=== PATIENT | male | born 1935 | race Caucasian/White ===

== ENCOUNTER 2018-12-26 15:27 | Inpatient (IN) | payer MEDICARE, OTHER ==
[2018-12-26] MEDS ORDERED: ISOVUE-370 76%-LOCM 1 ML ONE (15:45)
--- NOTE | 2018-12-26 16:30 | CT ---
Exam: CT ANGIOGRAM OF THE HEAD CT ANGIOGRAM OF THE NECK: HISTORY: Dizziness. Headache. Ataxia. Evaluate for carotid dissection. COMPARISON: None. FINDINGS: Postcontrast head CT: Age-appropriate atrophy. Cortical yates-white matter differentiation is preserve d. Adequate aeration of the sinuses and mastoid air cells. Aerodigestive tract is patent. No mucosal abnormality. Limited evaluation of the oral cavity due to d ental amalgam artifact. Midline fatty raphae of the tongue is preserved. Epiglottis has a normal caliber. Preepiglottic fat is preserved. Symmetric attenuation of the submandibular and parotid glands. Symmetric attenuation of the sternocle idomastoid muscles. No evidence of lymphadenopathy by size criteria. There is an upper normal left periparotid lymph node measuring 1.5 x 0.8 cm. Unremarkable thyroid gland. Upper mediastinum is unremarkable. Presumed chronic changes in the lung parenchyma. There is diffuse sclerosis of the osseous structures. There are varying degrees of central canal sten osis and neural foraminal narrowing. CT ANGIOGRAM: The visualized aortic arch is unremarkable. Right carotid: The right carotid artery origin, innominate artery, common carotid artery, carotid bif urcation and internal carotid artery have appropriate enhancement and luminal diameter. There is a small amount of calcified plaque in the right carotid bifurcation and proximal internal carotid arter y. No significant stenosis based upon NASCET criteria. Left carotid: Appropriate enhancement and luminal diameter of the origin of the left carotid artery. Minimal atherosclerosis left carotid bifurcation. The left common carotid, carotid bifurcation and internal carotid artery have appropriate enhancement and luminal diameter. Codominant cervical vertebral arteries are patent. Subclavian arteries are unremarkable CT angiogram of the head Distal cervical and intracranial internal carotid arteries have symmetric enhancement and luminal bill meter Anterior circulation: There is appropriate enhancement and luminal diameter of the A1 and M1 segments . The right A1 segment is slightly smaller than the contralateral side, likely due to congenital variant. The left M1 segment is truncated but has appropriate enhancement and luminal diameter, favor ing a congenital variant. Right M1 segment is unremarkable. Proximal A2 segments and proximal MCA branches are symmetric. Posterior circulation: Limited evaluation of PICA artery origins. Both vertebral arteries supply a no rmal appearing proximal basilar artery. The mid basilar artery demonstrates short segment severe stenosis with associated mild ectasia. Further interrogation with conventional angiography may be lu eficial. At the level of short segment severe stenosis, the basilar artery measures 0.1 x 0.3 cm. Bilateral P1 segments are unremarkable. IMPRESSION: 1. No evidence of carotid dissection. 2. 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 3. 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 Consider neurosurgical consultation fo r conventional angiography. Transcribed Date/Time: 12/26/2018 5:03 PM
--- NOTE | 2018-12-26 16:32 | CT ---
Exam: CT angiogram of the head CT angiogram the neck HISTORY: Dizziness. Headache. Ataxia. Evaluate for carotid dissection Comparison none FINDINGS: Postcontrast head CT: Age-appropriate atrophy. Cortical yates-white matter differentiation is preserve d. Adequate aeration of the sinuses and mastoid air cells Aerodigestive tract is patent. No mucosal abnormality. Limited evaluation the oral cavity due to dent al amalgam artifact. Midline fatty raphae of the tongue is preserved. Epiglottis has a normal caliber. Preepiglottic fat is preserved Symmetric attenuation of the subcutaneous mandibular and parotid glands. Symmetric attenuation of the sternocleidomastoid muscles No evidence of lymphadenopathy by size.. There is an upper normal left periparotid lymph node measuri ng 1.5 x 0.8 cm. Unremarkable thyroid gland Upper mediastinum is unremarkable. Presumed chronic changes in the lung parenchyma There is diffuse sclerosis osseous structures. There are varying degrees of central canal stenosis an d neural foraminal narrowing. CT ANGIOGRAM: The visualized aortic arch is unremarkable Right carotid: The right carotid artery origin, innominate artery, common carotid artery, carotid bif urcation and internal carotid artery of appropriate enhancement and luminal diameter. There is a small amount of calcified plaque in the right carotid bifurcation and proximal internal carotid arter y. No significant stenosis based upon mass effect criteria. Left carotid: Appropriate enhancement and luminal diameter the origin left carotid artery. Minimal at herosclerosis left carotid bifurcation. The left common carotid, carotid bifurcation and internal carotid artery have appropriate enhancement and luminal diameter Codominant cervical vertebral arteries are patent. Subclavian arteries are unremarkable CT angiogram of the head Distal cervical and intracranial internal carotid arteries have symmetric enhancement and luminal bill meter 2. Circulation: There is appropriate enhancement and luminal diameter the A1 and M1 segments. The rig ht A1 segment is slightly smaller than the contralateral side, likely due to congenital variant. The left M1 segment is truncated but has appropriate enhancement and luminal diameter, favoring a con genital variant. Right M1 segment is unremarkable. Proximal A2 segments and proximal MCA branches are symmetric Correlation: Limited evaluation of PICA artery origins. Both vertebral arteries supply a normal appea ring proximal basilar artery. The mid basilar artery demonstrates short segment severe stenosis with associated mild ectasia. Further interrogation with conventional angiography facial. At the leve l of short segment severe stenosis, the basilar artery measures 0.1 x 0.3 cm. Bilateral P1 segments are unremarkable IMPRESSION: 1. No evidence of carotid dissection 2. 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 Consider neurosurgical consultation fo r conventional angiography. Transcribed Date/Time: 12/26/2018 5:03 PM
[2018-12-26 17:48] LABS: Bilirubin Negative (Negative); Blood, Urine Trace (Negative); Clarity Clear (Clear); Glucose, Urine (Dipstick) Normal (Negative); Leukocyte Negative Leu/uL (Negative); Nitrite Negative (Negative); Protein, Urine (Dipstick) 30 mg/dL (Neg-Trace); RBC/HPF 21-50 HPF (0-3); Squamous Epithelial 0-3 HPF (0-3); Urobilinogen Normal mg/dL (Less than 2); WBC/HPF Greater than 50 HPF (0-3)
[2018-12-26 18:02] LABS: Bacteria/HPF 1+ HPF (None Seen)
[2018-12-26] MEDS ORDERED: Ondansetron PF 4 MG/2 ML Vial IVP PRN (19:15)
[2018-12-26] MEDS ORDERED: Ondansetron ODT 4 MG TAB SL PRN (19:15)
[2018-12-26] MEDS ORDERED: Aspirin 325 MG TAB PO SCH (20:15)
[2018-12-26 21:08] VITALS: BMI 21.9
[2018-12-26] MEDS ORDERED: hydrALAZINE 20 MG/ML VIAL SLOW IVP PRN (22:57)
--- NOTE | 2018-12-26 23:26 | PDOC.FPRHP ---
- History of Present Illness Chief Complaint: RIVERA History of Present Illness: Pt is an 83 yo M with history of bladder cancer and htn who presents with headache. The headache has been present for 2 weeks. His who head hurts and it feels like a pressure to the point he feels like his head is about to burst. Originally, he went to his pcp who thought it was R otitis media related, since he had sore throat and congestion, so he was given Amoxicllin and finished a couple of days ago. He tried to take some tramadol at night, which helped him sleep and he used ice packs for pain. After 1 wk, he went back to his pcp and was given oral steroids and ear drops. He was still having pain so two days later he was sent to an ENT who determined he had sinusitis and was given 2 nasal sprays. This morning he woke up at 4 am and felt dizzy and could not get his feet under him. He said he felt like the room was spinning and he was unable to focus on anything. He was eventually able to stand, but after he told his what happened they called their PCP who told them to come to the ER. ED Course: In the ED, they got a UA which showed >50 WBC, Libby: 1+, and no nitrites or leukocytes. Troponin was 0.017. CTA of Head and Neck was done and showed severe stenosis of the Basilar artery. - Allergies/Adverse Reactions Allergies Allergy/AdvReac Type Severity Reaction Status Date / Time No Known Allergies Allergy Verified 12/26/18 20:16 - Home Medications Medication Instructions Recorded Confirmed Type Azelastine [Azelastine 137 mcg 1 spray NASAL BID PRN 12/26/18 12/26/18 History (0.1%) Nasal [place]] Fluticasone Propionate [Flonase 2 drop NASAL BID PRN 12/26/18 12/26/18 History Nasal [place]] Lisinopril 20 mg PO BID 12/26/18 12/26/18 History Metoprolol Tartrate 50 mg PO BID 12/26/18 12/26/18 History Neomycin/Polymyxin B Sulf/HC 4 drop EA EAR QID 12/26/18 12/26/18 History [Neomycin/Polymyxin B Sulf/HC Otic Soln] - History PMHx: Bladder Cancer and HTN PSHx: Bladder and Prostate removed 10 years ago, cholecystectomy & appendectomy 4 years ago FHx: Non-contributory Social: Smoked 40 years ago for 15 years 1/2PPD, drinks socially. No recreational drugs. - Review of Systems General: reports: weight/appetite/sleep changes. denies: fever/chills Eyes: reports: vision changes (difficutly focusing on objects, goes in and out) ENT: reports: nasal congestion. denies: rhinorrhea Respiratory: denies: cough, shortness of breath Cardiovascular: denies: chest pain, edema Gastrointestinal: denies: nausea, vomiting, diarrhea Genitourinary: reports: incontinence Skin: denies: rashes, itching Musculoskeletal: denies: pain Neurological: reports: weakness, other (Ataxic gait) - Vital signs BP: 140/103 HR: 68 RR: 16 Tmax: 98 Pox: 98% on RA Wt: 77.5 - Physical Exam Constitutional: NAD HEENT: normocephalic and atraumatic, PERRLA, EOMI (with right gaze nystagmus), MMM, oropharynx clear Neck: supple Chest: no-tender to palpation Heart: RRR, normal S1/S2 Lungs: CTAB Abdomen: soft, non-tender, bowel sounds present Musculoskeletal: normal structure, normal tone Neurological: other (unable to perform heel to shinwith left leg on right side) Skin: no rash/lesions (small white nodules present over back.) Heme/Lymphatic: no unusual bruising or bleeding Psychiatric: normal mood and affect FMR H&P: Results - Labs Result Diagrams: 12/27/18 04:56 12/27/18 04:56 Lab results: Urine Ketones Negative mg/dL (Negative) 12/26/18 17:32 Urine Blood Trace (Negative) A 12/26/18 17:32 Urine Nitrite Negative (Negative) 12/26/18 17:32 Ur Leukocyte Esterase Negative Phoebe/uL (Negative) 12/26/18 17:32 Urine RBC 21-50 HPF (0-3) A 12/26/18 17:32 Urine WBC Greater than 50 HPF (0-3) A 12/26/18 17:32 Ur Squamous Epith Cells 0-3 HPF (0-3) 12/26/18 17:32 Urine Bacteria 1+ HPF (None Seen) 12/26/18 17:32 FMR H&P: A/P - Problem List (1) Stenosis of intracranial vessel Current Visit: Yes Status: Suspected Code(s): I66.9 - OCCLUSION AND STENOSIS OF UNSPECIFIED CEREBRAL ARTERY (2) HTN (hypertension) Current Visit: Yes Status: Acute Code(s): I10 - ESSENTIAL (PRIMARY) HYPERTENSION - Plan Pt is an 83 yo M with history of bladder cancer and htn who presents with headache. 1. Basilar Artery Stenosis CTA of Head & Neck: Showed Severe Basilar Artery Stenosis * Discussed with neurosurgery. They currently do not want to do surgery at this time. * MRI Brain with and without contrast * ASA 325, consider adding on Plavix or Eliquis later * Consider Neurology Consult in the AM 2. UTI Pt had surgery 10 years ago where bladder and prostate was removed and bladder remade out of small intestine * UA: WBC >50, Libby: 1+, No nitrites or leukocytes * Rocephin 3. HTN BP: 140/103 * Continue home: Lisinopril and metoprolol Diet: HHLSo Lines: Peripheral DVT Prophylaxis: Lovenox Code Status: Cardiac Only, DNI. GI Prophylaxis: Pepcid Dispo: Inpt, need MRI studies and neuro recommendations. FMR H&P: Upper Level - Pertinent history 83 yo M w/ PMH of bladder ca and HTN who presents for acute onset of blurred/ shaking visual rollins and ataxic gait. He reports headache tht has been present over last 2 weeks prior to onset of other sympotms. He denied and numbness, tingling or weakness elsewhere. He was seen in [place] [facility] and CT w & w/o contrast was done which showed possible occlusion of mid segment of basilar artery and neurosurgery consultation was recommended. Spoke with neurosurg pa communications associate who reviewed imaging and did not recommend any neurosurgical intervention. Incidentally, pt had elevated white count and left shift with positive UA. - Pertinent findings ROS: As above PE: Gen: NAD, resting in bed HEENT: NCAT, PERRLA, EOMI, conjunctiva clear CV: RRR No MRG Resp: CTABL N WRR Abd: Soft NTND Bsx4 Neuro: Strength 5/5 all extremities. CN2-12 intact, no cerebellar deficits, Pt had POS HINTS exam with unidirectional nystagmus, negative test of skew and positive head impulse with unidirectional sacade. Sensation intact Extremities: No clubbing, cyanosis or edema - Plan Date/Time: 12/26/18 2037 I, Owen Schrader, DO, have evaluated this patient and agree with findings/ plan as outlined by news department intern resident. Pertinent changes/additions are listed here. 1) Vestibular neuritis: - pos HINTS exam makes cerebellar stroke less likely; however, with findings on CTA will proceed with MRI - meclizine prn for cont symptoms - currently asymptomatic - pt ot speech consulted - consider am neuro consult - FLP consider mag phos tsh 2) UTI: - incidental - rocephin daily - trend cbc 3) HTN: home meds Dispo: stable. Admit to stroke obs for cont workup. Likely peripheral lesion. ASA daily. Addendum - Attending - Attending Attestation Date/Time: 12/27/18 9440 I personally evaluated the patient and discussed the management with Dr. Schrader and team. Agree with Dr. Schrader's neuro exam. Able to perform heel to cheung on my exam. I agree with the History, Examination, Assessment and Plan documented above with any addition or exceptions noted below.
[2018-12-27] MEDS: cefTRIAXone\\ROCEPHIN 1 GM in Sodium Chloride 0.9% 100 ML IVPB SCH ×2 (00:36→22:28)
[2018-12-27] MEDS: Acetaminophen 325 MG TAB PO PRN ×4 (00:45→22:29)
[2018-12-27 05:28] LABS: #Eosinphils 0.1 thou/uL (0.0-0.7); #Lymphocytes 1.5 thou/uL (1.20-3.40); #Neutrophils 10.4 thou/uL (1.40-6.50); %Basophils 0.3 % (0.0-1.0); %Eosinophils 0.7 % (0.0-10.0); %Lymphocytes 11.6 % (21.0-51.0); %Monocytes 7.5 % (0.0-10.0); Hemoglobin 10.7 g/dL (14.0-18.0); Mean Corpuscular HGB CONC 31.3 g/dL (32.0-36.0); Mean Corpuscular Hemoglobin 27.5 pg (27.0-31.0); Mean Corpuscular Volume 87.8 fL (78.0-98.0); Platelet Count 290 thou/uL (130-400); RBC Distribution Width 12.6 % (11.5-14.5)
[2018-12-27 06:01] LABS: ALT (SGPT) 22 U/L (8-55); AST (SGOT) 15 U/L (5-34); Albumin 3.2 g/dL (3.4-4.8); Alkaline Phosphatase 161 U/L (40-150); Anion Gap 12 mmol/L (10-20); BUN (Urea Nitrogen) 21 mg/dL (8.4-25.7); Bilirubin, Total 0.4 mg/dL (0.2-1.2); Calc. Creatinine Clearance 60 mL/min (70-130); Carbon Dioxide 27 mmol/L (23-31); Cardiac Risk 3.6 (Less than 4.5); Chloride 105 mmol/L (98-107); Cholesterol 114 mg/dl (< 200 Desired); Estimated GFR-MDRD 74; Globulin 3.2 g/dL (2.4-3.5); Glucose 103 mg/dL (83-110); HDL Cholesterol 32 mg/dL (>60 Neg Risk); LDL Cholesterol, Calculated 65 mg/dL; Potassium 3.9 mmol/L (3.5-5.1); Protein, Total 6.4 g/dL (5.8-8.1); Sodium 140 mmol/L (136-145); Triglycerides 84 mg/dL (Less than 150)
--- NOTE | 2018-12-27 06:16 | PDOC.FM ---
- Subjective Subjective: Pt remains with a headache. RIVERA is located around his R eye. He had vision changes yesterday, denied blurriness and room spinning. - Objective Vital Signs & Weight: Vital Signs (12 hours) Temp Pulse Resp BP Pulse Ox 12/27/18 04:00 97.7 F 66 18 166/78 H 96 12/27/18 00:52 95 12/27/18 00:00 97.5 F L 72 20 167/65 H 95 12/26/18 19:31 98.1 F 79 16 141/58 H 95 Weight Weight 73.573 kg Result Diagrams: 12/27/18 04:56 12/27/18 04:56 Phys Exam - Physical Examination Constitutional: NAD HEENT: PERRLA pain around R eye, complaining of RIVERA Respiratory: clear to auscultation bilateral Cardiovascular: RRR, no significant murmur Gastrointestinal: soft, no distention Musculoskeletal: no edema, pulses present Neurological: non-focal, normal sensation, moves all 4 limbs cerebellar tests negative, denies vision changes, remains w/ RIVERA at L eye Psychiatric: normal affect, A&O x 3 Dx/Plan (1) Ataxia Code(s): R27.0 - ATAXIA, UNSPECIFIED Status: Acute (2) Headache Code(s): R51 - HEADACHE Status: Acute (3) HTN (hypertension) Code(s): I10 - ESSENTIAL (PRIMARY) HYPERTENSION Status: Acute (4) Stenosis of intracranial vessel Code(s): I66.9 - OCCLUSION AND STENOSIS OF UNSPECIFIED CEREBRAL ARTERY Status : Suspected - Plan Plan: Pt is an 83 yo M with history of bladder cancer and htn who presented with RIVERA, ataxia and found to have severe stenosis of the basilar artery, MRI pending, Neurology consulted, PT/OT consulted. 1. Basilar Artery Stenosis CTA of Head & Neck: Showed Severe Basilar Artery Stenosis * Discussed with neurosurgery. They currently do not want to do surgery at this time. * MRI Brain with and without contrast pending * ASA 325, consider adding on Plavix or Eliquis; Has-Bled score 4 * Neurology Consult in the AM * PT/OT consult * Start statin therapy 2. UTI Pt had surgery 10 years ago where bladder and prostate was removed and bladder remade out of small intestine * UA: WBC >50, Libby: 1+, No nitrites or leukocytes * Rocephin continued 3. HTN BP: 140/103 * Held for permissive HTN, > 24 hours now since onset so can restart medications 4. Headache secondary to complex migraine vs stroke vs temporal arteritis Pain behind R eye, temporal region - compakhiline reglan started - ERS pending Diet: HHLSo Lines: Peripheral DVT Prophylaxis: Lovenox Code Status: Cardiac Only, DNI. GI Prophylaxis: Pepcid Dispo: Inpt, need MRI studies and neuro recommendations. Addendum - Attending - Attending Attestation Date/Time: 12/27/18 4451 I personally evaluated the patient and discussed the management with Dr. Soria. I agree with the History, Examination, Assessment and Plan documented above with any addition or exceptions noted below.
[2018-12-27] MEDS ORDERED: Prevnar 13-Val Conj/PF 0.5 ML SYRINGE IM ONE (09:00)
[2018-12-27] MEDS: Aspirin 325 mg Enteric Coated Tablet PO SCH (09:37)
[2018-12-27] MEDS: Famotidine 20 MG TAB PO SCH ×2 (09:37→20:28)
[2018-12-27] MEDS: Enoxaparin Sodium 40 MG/0.4 ML SYRINGE SC SCH (09:37)
[2018-12-27] MEDS ORDERED: Prochlorperazine Maleate 5 MG TAB PO PRN (10:59)
[2018-12-27] MEDS ORDERED: Metoclopramide 10 MG/10 ML UDCUP PO PRN (11:00)
[2018-12-27 14:29] LABS: Hemoglobin A1c 5.4 % (4.0-6.0)
[2018-12-27] MEDS: Naproxen 500 MG TAB PO PRN ×2 (16:16→22:29)
--- NOTE | 2018-12-27 18:17 | CON ---
DATE OF CONSULTATION: 12/27/2018 CONSULT PHYSICIAN: [facility]. IMPRESSION: Ear pain and vertigo, possibly secondary to an inner ear inflammation. PLAN: 1. Review MRI of the brain to determine whether there has been any evidence of an ischemic event in correlation with his basilar artery ischemia. 2. Aspirin 325 mg per day. 3. Statin. HISTORY OF PRESENT ILLNESS: Mr. Licea is an 83-year-old man, who reports he has had some ear pressure and pain for the last 2 weeks. He went to see ENT. He was prescribed some antibiotics and other medications. He has had some intermittent dizziness since he has been experiencing this. Apparently, the dizziness became more intense and he came to the emergency room. He had a CT of the brain done, which did not show any ischemic changes. CT angiogram showed some basilar artery stenosis. His lipid panel showed a ratio of 3.6. His urine suggested a urinary tract infection. He has been stable since admission without any evidence of fever. PAST HISTORY: Poor hearing. ALLERGIES: NONE. SOCIAL HISTORY: No tobacco or alcohol use. FAMILY HISTORY: Noncontributory. REVIEW OF SYSTEMS: Ten-system review of systems is otherwise negative. PHYSICAL EXAMINATION: VITAL SIGNS: Blood pressure 188/90, pulse 60, respirations 18, and temperature 98.1. HEENT: Pupils are equal. Conjunctivae are clear. Oropharynx clear. No nystagmus present. Oropharynx clear. NECK: Supple. No lymphadenopathy. EXTREMITIES: No cyanosis or edema. NEUROLOGIC: He was alert and cooperative. His speech is fluent and clear. His hearing was significantly impaired. There was no tremor or dysmetria noted. Ravp-on-[id number] movements were symmetric. He could stand at the bedside with mild wavering. No focal weakness was elicited. Sensation was equal to light touch. LABORATORY STUDIES: White blood cell count 13, hemoglobin 10.7. Chemistry panel was otherwise unremarkable. SUMMARY: This is an elderly man with ear pain and vertigo. The basilar artery stenosis may be an incidental finding. He does not have anything focal on exam to suggest a stroke. I would start a stroke prevention plan as documented and followup as necessary with ENT. Job ID: [id number]
--- NOTE | 2018-12-27 19:19 | MRI ---
BRAIN MRI WITH AND WITHOUT CONTRAST: 12/27/18 COMPARISON: None. HISTORY: Basilar stenosis, stroke. TECHNIQUE: Multiplanar and multisequence MR imaging of the brain obtained with and without contrast. FINDINGS: The diffusion weighted imaging demonstrates no evidence for acute infarction. The axial gradient echo imaging demonstrates no evidence for intracranial hemorrhage. Patchy areas of increased T2 signal no joe within the sae. There are numerous subcentimeter foci of increased T2 and FLAIR signal within th e periventricular, deep, and subcortical white matter. These findings are consistent with small vesse l disease. The imaged paranasal sinuses and mastoid air cells demonstrate partial opacification of the mastoid a ir cells on the right. Arterial flow voids at the axial level of the skull base appear unremarkable o n the T2 weighted imaging. Postcontrast imaging demonstrates no abnormal enhancement within the brain parenchyma. IMPRESSION: Mild small vessel disease. No evidence for intracranial hemorrhage or acute infarction. POS: TPC
[2018-12-27] MEDS ORDERED: Atorvastatin Calcium 40 MG TAB PO SCH (21:00)
[2018-12-28 05:26] LABS: #Basophils 0.1 thou/uL (0.0-0.2); #Eosinphils 0.1 thou/uL (0.0-0.7); #Lymphocytes 1.6 thou/uL (1.20-3.40); #Monocytes 0.9 thou/uL (0.11-0.59); #Neutrophils 9.4 thou/uL (1.40-6.50); %Basophils 0.4 % (0.0-1.0); %Lymphocytes 13.2 % (21.0-51.0); %Monocytes 7.5 % (0.0-10.0); %Neutrophils 77.8 % (42.0-75.0); Hemoglobin 11.5 g/dL (14.0-18.0); Mean Corpuscular HGB CONC 32.6 g/dL (32.0-36.0); Mean Corpuscular Hemoglobin 28.7 pg (27.0-31.0); Mean Corpuscular Volume 88.1 fL (78.0-98.0); Platelet Count 295 thou/uL (130-400); RBC Distribution Width 12.4 % (11.5-14.5)
[2018-12-28 05:47] LABS: ALT (SGPT) 16 U/L (8-55); AST (SGOT) 12 U/L (5-34); Albumin 3.2 g/dL (3.4-4.8); Alkaline Phosphatase 154 U/L (40-150); Anion Gap 10 mmol/L (10-20); BUN (Urea Nitrogen) 18 mg/dL (8.4-25.7); Bilirubin, Total 0.3 mg/dL (0.2-1.2); Calc. Creatinine Clearance 61 mL/min (70-130); Carbon Dioxide 28 mmol/L (23-31); Chloride 107 mmol/L (98-107); Estimated GFR-MDRD 76; Globulin 3.2 g/dL (2.4-3.5); Glucose 102 mg/dL (83-110); Protein, Total 6.4 g/dL (5.8-8.1); Sodium 141 mmol/L (136-145)
[2018-12-28] MEDS ORDERED: Fluticasone Propionate Nasal Spray 16 gm Bottle NASAL PRN (06:02)
[2018-12-28] MEDS ORDERED: Prochlorperazine Maleate 5 MG TAB PO PRN (06:06)
[2018-12-28] MEDS: Aspirin 325 mg Enteric Coated Tablet PO SCH (08:18)
[2018-12-28] MEDS: Enoxaparin Sodium 40 MG/0.4 ML SYRINGE SC SCH (08:18)
[2018-12-28] MEDS: Famotidine 20 MG TAB PO SCH (08:18)
[2018-12-28] MEDS: NEOMYCIN-POLYMYXIN-HC EAR SUSP 200 DROP/10 ML BOT EA EAR SCH ×2 (08:19→12:56)
[2018-12-28] MEDS ORDERED: Lisinopril 20 MG TAB PO SCH (09:00)
[2018-12-28] MEDS ORDERED: Fluticasone Propionate Nasal Spray 16 gm Bottle NASAL SCH ×2 (09:00)
[2018-12-28] MEDS ORDERED: Metoprolol Tartrate 50 MG TAB PO SCH (09:00)
[2018-12-28 11:35] VITALS: BP 162/69; TEMP 97.7
--- NOTE | 2018-12-28 12:20 | PDOC.FM ---
- Subjective Subjective: Pt is doing well. He is happy to find out he did not have a stroke. - Objective Vital Signs & Weight: Vital Signs (12 hours) Temp Pulse Pulse Pulse Resp BP BP 12/28/18 11:14 97.7 F 69 16 12/28/18 09:49 12/28/18 09:12 70 71 187/78 H 12/28/18 08:18 187/79 H 12/28/18 08:10 12/28/18 07:38 98.4 F 70 16 12/28/18 04:00 97.9 F 75 19 BP BP Pulse Ox 12/28/18 11:14 162/69 H 97 12/28/18 09:49 152/76 H 12/28/18 09:12 181/85 H 12/28/18 08:18 12/28/18 08:10 96 12/28/18 07:38 187/79 H 96 12/28/18 04:00 174/77 H 98 Weight Weight 73.573 kg I&O: 12/27/18 12/28/18 12/29/18 06:59 06:59 06:59 Intake Total 400 930 Output Total 490 1650 Balance -90 -720 Result Diagrams: 12/28/18 04:48 12/28/18 04:48 Phys Exam - Physical Examination Constitutional: NAD Respiratory: no wheezing, clear to auscultation bilateral Cardiovascular: RRR, no significant murmur Gastrointestinal: soft, non-tender, positive bowel sounds Musculoskeletal: no edema, pulses present Neurological: non-focal, normal sensation, moves all 4 limbs Psychiatric: normal affect, A&O x 3 Dx/Plan (1) Ataxia Code(s): R27.0 - ATAXIA, UNSPECIFIED Status: Acute (2) Headache Code(s): R51 - HEADACHE Status: Acute (3) HTN (hypertension) Code(s): I10 - ESSENTIAL (PRIMARY) HYPERTENSION Status: Acute (4) Stenosis of intracranial vessel Code(s): I66.9 - OCCLUSION AND STENOSIS OF UNSPECIFIED CEREBRAL ARTERY Status : Suspected - Plan Plan: Pt is an 83 yo M with history of bladder cancer and htn who presented with RIVERA, ataxia and found to have severe stenosis of the basilar artery, MRI pending, Neurology consulted, PT/OT consulted. 1. Basilar Artery Stenosis CTA of Head & Neck: Showed Severe Basilar Artery Stenosis * Discussed with neurosurgery. They currently do not want to do surgery at this time. * MRI Brain with and without contrast revealed no lesions * Neurology Consult; agree with plan * Start statin therapy, cont asa 325 mg 2. UTI Pt had surgery 10 years ago where bladder and prostate was removed and bladder remade out of small intestine * UA: WBC >50, Libby: 1+, No nitrites or leukocytes * Rocephin continued 3. HTN - allowed for permissive htn, BP's restarted 4. Headache secondary to complex migraine vs stroke vs temporal arteritis Pain behind R eye, temporal region - compezine, reglan started - ERS elevated; advise pt to follow up with physician in 1 week. If headache does not regress could consider temporal bx 5. Sinusitis Pt was previously seen for sinusitis. Symptoms could all be from sinusitis. Will discharge with prednisone, abx in hopes to alleviate symptoms. Recommend ENT follow up. Diet: HHLSo Lines: Peripheral DVT Prophylaxis: Lovenox Code Status: Cardiac Only, DNI. GI Prophylaxis: Pepcid Dispo: Inpt, need MRI studies and neuro recommendations. Addendum - Attending - Attending Attestation Date/Time: 12/29/18 1837 I personally evaluated the patient and discussed the management with Dr. Soria. I agree with the History, Examination, Assessment and Plan documented above with any addition or exceptions noted below.
--- NOTE | 2018-12-28 13:04 | PRG ---
DATE OF SERVICE: 12/28/2018 Mr. Licea reports his dizziness is quite a bit better. He has some intermittent sensations of vertigo. He still has a pressure and feeling of fluid behind the right ear. He had an uneventful night. He remains afebrile. His MRI of the brain was reviewed, which did not show any evidence of an ischemic event to account for his symptoms. I would suggest that we start him on prednisone 20 mg a day for the next 5 days to try to reduce the inflammation in the inner ear. I would continue aspirin and a statin given his basilar stenosis. He can be discharged home today. He could follow up with ENT. Job ID: [id number]
--- NOTE | 2018-12-30 22:44 | DIS ---
DATE OF ADMISSION: 12/26/2018 DATE OF DISCHARGE: 12/28/2018 RESIDENT: Gal Soria DO ADMITTING ATTENDING: Jimmy Diaz MD DISCHARGE ATTENDING: Jarod Mcdonald MD CONSULTS: Neurology, Dr. Ross. PROCEDURES: None. PRIMARY DIAGNOSES: 1. Sinusitis. 2. Basilar artery stenosis. 3. Hypertension. 4. Urinary tract infection. 5. Headache. SECONDARY DIAGNOSIS: History of bladder cancer. DISCHARGE MEDICATIONS: 1. Neomycin polymyxin B 4 drops each ear q.i.d. 2. Metoprolol tartrate 50 mg p.o. b.i.d. 3. Lisinopril 20 mg p.o. b.i.d. 4. Flonase 2 inhalations b.i.d. p.r.n. 5. Azelastine 137 mcg 1 spray nasal b.i.d. p.r.n. 6. Aspirin 325 mg p.o. daily. 7. Atorvastatin 40 mg p.o. at bedtime. 8. Augmentin 875/125 one tablet p.o. b.i.d. x5 days. 9. Prednisone 40 mg p.o. q.a.m. x7 days. DISCONTINUED MEDICATIONS: None. HISTORY OF PRESENT ILLNESS/HOSPITAL COURSE: The patient is an 83-year-old male with history of bladder cancer and hypertension, presented with a headache. Headache has been present for 2 weeks. He said that his head hurts and feels like there was a lot of pressure. He went to his PCP, who thought it was right otitis media related as patient had been experiencing sore throat and congestion, so he was given amoxicillin and had recently finished the course. After 1 week, he went back to his PCP and was given oral steroids and ear drops. The pain did not remit, so he went to the ENT to determine if he had sinusitis and was given nasal sprays. At 4:00 a.m., he woke up and felt dizzy and could not get his feet under and he felt the room was spinning. So he decided to come to the ER. CTA of the head and neck was done, revealed severe stenosis of the basilar artery. His troponins were negative. He was also found to have a UA with greater than 50 white blood cells. He was treated with Rocephin at this time. I discussed the case with Neurosurgery, who did not want to do any surgery at this time. An MRI of the brain with and without contrast did not show any lesions pointing towards an acute stroke. The patient has continued with headache during this time, but did not experience any other symptoms. His neuro exam was within normal limits. Neurology was consulted as well, Dr. Ross saw the patient and advised starting steroids and following up outpatient with the ENT. He added on antibiotics in the interim as well. It is likely his headache is secondary to sinusitis that he is experiencing and causing this headache. DISPOSITION: Stable. DISCHARGE INSTRUCTIONS: 1. Location: [facility]. 2. Diet: Ad andrew. 3. Activity: Ad andrew. 4. Followup: Follow up with primary care physician within the next week and ENT within the next week. Job ID: [id number] [id number]
== END 2018-12-28 13:56 | disposition home or self-care (01) | DRG 68 ==
LOC: ERS 15:27 → 2SE 19:42
PROVIDERS: ADMIT Emergency Medicine; ATTEND Emergency Medicine
DX: I65.1 Occlusion and stenosis of basilar artery (principal); N39.0 Urinary tract infection, site not specified; I10 Essential (primary) hypertension; J32.9 Chronic sinusitis, unspecified; Z85.51 Personal history of malignant neoplasm of bladder; Z90.49 Acquired absence of other specified parts of digestive tract; Z90.79 Acquired absence of other genital organ(s); Z87.891 Personal history of nicotine dependence
CPT/HCPCS: 36415; 70496; 70498; 70553; 80053; 80061; 81003; 81015; 83036; 85025; 85652; 86140; 87086; 90471; 90670; 96374; G0009; J0696; J1650; J3490; Q0164; Q9966